=== PATIENT | female | born 1985 | race African-American/Black ===

== ENCOUNTER 2016-10-06 17:17 | Emergency (ER) | payer OTHER ==
[~2016-10-06] VITALS: Ht 162.6 cm; Wt 89.4 kg
[~2016-10-06 17:17] MED LIST: ACETAMINOPHEN-1 EAC2 PO; FLEXERIL10 MG PO; IBUPROFEN800 M1 PO; JUNEL FE 1/20 21 TAB PO; LIORESAL 10MG T10 MG PO; MACROBID100 MG PO; MOTRIN 600 MG600 MG PO; PANTOPRAZOLE SO40 M1 PO; PERCOCET 325 MG1 TA2 PO; PROAIR HFA8.5 GM INH; TRAMADOL HCL50 M1 PO; VICODIN5-300 PO; ZOFRAN ODT4 MG PO; ZOFRAN ODT4 MG SL
[2016-10-06 17:21] VITALS: BP 130/87
[2016-10-06] MEDS ORDERED: MEDROL4 M2 PO (18:34)
[2016-10-06] MEDS ORDERED: CYCLOBENZAPRINE10 M1 PO (18:34)
[2016-10-06] MEDS ORDERED: PERCOCET 5-3251 EACH PO (18:34)
--- NOTE | 2016-10-06 18:35 | ED NECK/BACK PAIN COMPLAINT ---
History of Present Illness General Chief Complaint: Lower Extremity Injury Stated Complaint: PT SHARP PAIN IN THE LOWER BACK Source: patient Exam Limitations: no limitations Vital Signs & Intake/Output Vital Signs & Intake/Output Vital Signs Date Time Temp Pulse Resp B/P Pulse O2 O2 Flow FiO2 Ox Delivery Rate 10/06 1721 96.0 103 16 130/87 99 Room Air Allergies Coded Allergies: No Known Allergies (10/06/16) Reconcile Medications Acetaminophen With Codeine (Acetaminophen-Cod #4 Tablet) 1 EACH TABLET 1 TAB PO TID PRN PAIN (Reported) Albuterol Sulfate (Proair Hfa) 8.5 GM HFA.AER.AD 2 PUF INH Q4-6 PRN PRN BREATHING PROBLEMS (Reported) Cyclobenzaprine HCl 10 MG TABLET 1 TAB PO TID SPASMS Ibuprofen 800 MG TABLET 1 TAB PO TID PRN PAIN (Reported) Methylprednisolone. (Medrol) 4 MG TAB.DS.PK 1 DP PO AD BACK PAIN 6 on day 1 then reduce by one tablet daily until gone Oxycodone HCl/Acetaminophen (Percocet 5-325 MG Tablet) 5 MG-325 MG TABLET 1-2 TAB PO Q6P PRN pain Pantoprazole Sodium 40 MG TABLET.DR 1 TAB PO DAILY GI (Reported) Tramadol HCl 50 MG TABLET 1 TAB PO BIDP PRN PAIN (Reported) Triage Note: PT STATES SHE IS HAVING SHARP PAIN IN HER BACK THAT HAS BEEN GOING ON FOR MONTHS BUT GETTING WORSE. PT STATES SHE HAS HAD X-RAYS AND NOBODY CAN FIND OUT WHY. PT STATES SHE IS ONLY ABLE TO STAND FOR 5 MINUTES AT A TIME. Triage Nurses Notes Reviewed? yes Onset: Abrupt Duration: week(s):, getting worse Quality/Severity: moderate, severe Location: lumbar spine Loss of Consciousness: no loss of consciousness : No Patient currently breastfeeds: No HPI: 31-year-old female comes into emergency room for further evaluation of lower back pain. Patient reports that she's been experiencing chronic low back pain since 2014. Patient reports that the pain has been worse over the past few weeks. She denies any vomiting. She denies any abdominal pain. Denies any chance of . Pain shoots down her left leg. Nothing seems to make the symptoms better. Patient has been taking [id number] medications with no relief. Denies any other associated symptoms. (KAE GARCIA) Past History Travel History Traveled to [place] past 21 day No Medical History Any Pertinent Medical History? 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 No (KAE GARCIA) Review of Systems Review of Systems Constitutional: Reports: no symptoms. Eyes: Reports: no symptoms. Ears, Nose, Throat, Mouth: Reports: no symptoms. Respiratory: Reports: no symptoms. Cardiovascular: Reports: no symptoms. Gastrointestinal/Abdominal: Reports: no symptoms. Musculoskeletal: Reports: see HPI. Skin: Reports: no symptoms. Neurological/Psychological: Reports: no symptoms. All Other Systems: Reviewed and Negative (KAE GARCIA) Physical Exam Physical Exam General Appearance: well developed/nourished, mild distress Head: atraumatic Eyes: Bilateral: normal appearance. Ears, Nose, Throat, Mouth: hearing grossly normal, moist mucous membrane Neck: normal inspection, full range of motion Respiratory: normal breath sounds, no respiratory distress Back: normal inspection Extremities: normal range of motion Motor: Deficit L4 Right: No Deficit L4 Left: No Deficit L5 Right: No Deficit L5 Left: No Deficit S1 Right: No Deficit S1 Right: No Neurologic/Psych: awake, alert, oriented x 3, normal mood/affect Skin: intact, normal color, warm/dry (KAE GARCIA) Progress Differential Diagnosis: cauda equina syn, herniated disc, myofascial strain, pyelo/UTI, sciatica, spinal cord inj, thoracic outlet syn, T/L spine injury, ureterolithiasis Plan of Care: Current Medications Sig/Vanessa Start time Last Medication Dose Stop Time Status Admin Oxycodone/ 2 TAB ONCE ONE 10/06 1844 UNVr Acetaminophen 10/06 1845 (Percocet) Comments: 10/06/2016 6:51:13 PM Patient's pain is all reproducible and lower back. Pain is worse with range of motion. No evidence of radiculopathy on exam. No urinary bowel dysfunction. No genital numbness. No weakness in the lower extremity. Normal dorsiflexion of great toe. Gross sensation intact. No saddle paresthesia. Considered things like cauda equina have a do not feel that patient's symptoms at this point in time are consistent with this diagnosis. Patient has no other symptoms that could be attributing to back pain. No abdominal pain, shortness of breath, chest pain. Patient is to follow-up with primary care doctor for recheck. If symptoms persist patient should be considered for an MRI of the lower back. Patient is to return immediately if any nausea vomiting, fever, weakness in the legs, urinary bowel dysfunction, abdominal pain, chest pain, shortness of breath. No weight loss. No night sweats. Pain is consistent with musculoskeletal pain due to the patient's symptoms mentioned above. (OTTO TANNER,KAE) Departure Departure Disposition: HOME OR SELF CARE Condition: Stable Clinical Impression Primary Impression: Acute exacerbation of chronic low back pain Referrals: UNKNOWN (PCP/Family) Additional Instructions: Take Percocet, Flexeril, and Medrol Dosepak as prescribed. Follow-up with your primary care doctor. Return if any urinary bowel dysfunction. Return if any other concerns worsening symptoms. Please go over all results of today's visit with your primary care doctor. Contact your primary care doctor to let them know you were here in the emergency room. There may be nonspecific findings which may not be related to your visit today here in the emergency room but may require further evaluation and chronic monitoring by your primary care doctor. If you had a laceration today the chance of foreign body always remains. You should follow-up with your primary care doctor for recheck in 3-5 days for a wound check. If you had an x-ray done there is a chance that a fracture could have been missed on initial read and you should follow-up with your primary care doctor for repeat x-rays if symptoms persist. If your blood pressure was elevated here in the emergency room please have rechecked by her primary care doctor within the next 48 hours by your primary care doctor. If you were prescribed a narcotic here in the emergency room or any type of controlled substances you're not allowed to drive while taking this medication or operate any type of heavy machinery. Narcotics can make you feel lightheaded dizziness nausea and can cause constipation. You may need to mixing picker tender a stool softener. Thank you for choosing [facility] emergency room. Please return to the emergency room immediately if you have any other concerns worsening of symptoms. Departure Forms: Customer Survey General Discharge Information Prescriptions: Current Visit Scripts Oxycodone HCl/Acetaminophen (Percocet 5-325 MG Tablet) 1-2 TAB PO Q6P PRN pain #15 TAB Cyclobenzaprine HCl 1 TAB PO TID #20 TAB Methylprednisolone. (Medrol) 1 DP PO AD #1 DP 6 on day 1 then reduce by one tablet daily until gone (KAE GARCIA) PA/CAR REPOSSESSOR Co-Sign Statement Statement: ED Attending supervision documentation- [] I saw and evaluated the patient. I have also reviewed all the pertinent lab results and diagnostic results. I agree with the findings and the plan of care as documented in the PA's/CAR REPOSSESSOR's documentation. [X] I have reviewed the ED Record and agree with the PA's/CAR REPOSSESSOR's documentation. [] Additions or exceptions (if any) to the PAs/CAR REPOSSESSOR's note and plan are summarized below: [] (NATTY BONILLA DO
== END 2016-10-06 18:43 ==
LOC: ERH 17:17
DX: G89.29 Other chronic pain (principal); M54.5 Low back pain

== ENCOUNTER 2016-10-08 12:35 | Emergency (ER) | payer OTHER ==
[~2016-10-08] VITALS: Ht 162.6 cm; Wt 89.4 kg
[~2016-10-08 12:35] MED LIST changes: +CYCLOBENZAPRINE10 M1 PO; +MEDROL4 M2 PO; +PERCOCET 5-3251 EACH PO
[2016-10-08 12:40] VITALS: BP 119/80
--- NOTE | 2016-10-08 13:24 | ED NECK/BACK PAIN COMPLAINT ---
History of Present Illness General Chief Complaint: Low Back Pain/Injury Stated Complaint: LEG AND LOWER BACK PAIN Source: patient, old records Exam Limitations: no limitations Vital Signs & Intake/Output Vital Signs & Intake/Output Vital Signs Date Time Temp Pulse Resp B/P Pulse O2 O2 Flow FiO2 Ox Delivery Rate 10/08 1240 97.6 104 18 119/80 98 Room Air Allergies Coded Allergies: No Known Allergies (10/06/16) Reconcile Medications Acetaminophen With Codeine (Acetaminophen-Cod #4 Tablet) 1 EACH TABLET 1 TAB PO TID PRN PAIN (Reported) Albuterol Sulfate (Proair Hfa) 8.5 GM HFA.AER.AD 2 PUF INH Q4-6 PRN PRN BREATHING PROBLEMS (Reported) Cyclobenzaprine HCl 10 MG TABLET 1 TAB PO TID SPASMS Hydromorphone HCl (Dilaudid) 2 MG TABLET 1 TAB PO BIDP PRN pain Ibuprofen 800 MG TABLET 1 TAB PO TID PRN PAIN (Reported) Methylprednisolone. (Medrol) 4 MG TAB.DS.PK 1 DP PO AD BACK PAIN 6 on day 1 then reduce by one tablet daily until gone Oxycodone HCl/Acetaminophen (Percocet 5-325 MG Tablet) 5 MG-325 MG TABLET 1-2 TAB PO Q6P PRN pain Pantoprazole Sodium 40 MG TABLET.DR 1 TAB PO DAILY GI (Reported) Tramadol HCl 50 MG TABLET 1 TAB PO BIDP PRN PAIN (Reported) Triage Note: C/O LOWER BACK BACK PAIN X MONTHS. SEEN HERE 2 DAYS AGO FOR SAME, STATES PAIN IS WORSE, RADIATING TO BOTH LEGS. PAIN MEDS AND MUSCLE RELAXERS NOT HELPING. Triage Nurses Notes Reviewed? yes Onset: Gradual Duration: intermittent, waxing and waning, since 2014 worse x 2 weeks Timing: recent history Quality/Severity: moderate, severe, aching Location: paraspinous muscles Radiation: buttocks, upper legs, lower legs Method of Injury: unknown Loss of Consciousness: no loss of consciousness Modifying Factors: movement, pain medication, rest : No Patient currently breastfeeds: No HPI: 31-year-old female history of hypertension diabetes presents complaining of exacerbation of her chronic left lower back pain that she's had since 2014. She states this episode is been present for the past 2 weeks. Patient was seen in this ER earlier this week was prescribed Medrol Dosepak Flexeril Percocet which she states she's been taking without improvement. The pain is radiating into her eyes abdominal pain nausea vomiting no urinary or bowel incontinence. She describes the pain as a tingling sensation into her leg. She states she has seen her primary care physician in the past for these symptoms had x-rays with no known cause identified. Pain is worse with change in position there is been no recent fall trauma or other injury patient denies chance of there are no other associated symptoms pain is aching mild to moderate severe aching better with rest (COREY MOE) Past History Travel History Traveled to [place] past 21 day No Medical History Any Pertinent Medical History? 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 No (COREY MOE) Review of Systems Review of Systems Constitutional: Reports: see HPI. All Other Systems: Reviewed and Negative Comments Review of systems: See HPI, All other systems negative. Constitutional, no chills no fever, no malaise HEENT: no sore throat no congestion, no ear pain Cardiovascular: No chest pain , no palpitation Skin, no rashes, no change in skin Respiratory: No dyspnea no cough no sputum no hemoptysis GI: No nausea no vomiting, no diarrhea, no bloating/constipation : No dysuria No hematuria, no frequency, no discharge Muscle skeletal: No joint pain, no joint swelling, back pain, no neck pain, Neurologic: No numbness no confusion, no headache Psych: No stress Heme/endocrine: No bruising no bleeding Immunology: No lymphadenopathy (COREY MOE) Physical Exam Physical Exam General Appearance: well developed/nourished, alert, awake Neck: normal inspection, supple, full range of motion Comments: Well-developed well-nourished person in no acute distress HEENT: Normal EENT exam; PERRL, EOMI,HEAD is atraumatic. moist mucous membranes. Neck: Supple, normal range of motion Back: Left sided paralumbar muscle tenderness palpation no ecchymosis, no CVA tenderness. Full range of motion Cardiovascular: Regular rate and rhythms no murmurs rubs Respiratory: No respiratory distress. Patient speaking in full complete sentences. Breath sounds clear to auscultation bilaterally: NO W/R/R Abdomen: Soft, nontender nondistended, no appreciable organomegaly. Normal bowel sounds. No rebound/guarding, No appreciable enlargement of the abdominal aorta, No ascites. upper Extremity: No edema, full range of motion of extremities 5 out of 5 strength noted to bilateral upper and lower extremities Hip/Pelvis: Atraumatic/Stable. FROM. No pain with pelvic compression Knee: Atraumatic/stable. FROM. No joint swelling, no effusion. No laxity. No pain with ROM Leg: Atraumatic. Nontender. No edema, 5 out of 5 strength in the lower extremity, normal dorsiflexion of great toe bilaterally, gross sensation is intact Ankle/Foot: Atraumatic/stable. Skin intact. FROM. No swelling, no effusion. No laxity on exam Pulses: Normal/equal DP/PT pulses bilaterally. Brisk cap refill Neuro: Alert oriented x3, motor sensory normal, There were no obvious focal neurologic abnormalities. Skin: No appreciable rash on exposed skin, skin is warm and dry. Psych: Mood and affect is normal, memory and judgment is normal. (JOSEP TANNER,COREY) Progress Differential Diagnosis: cauda equina syn, herniated disc, myofascial strain, pyelo/UTI, sciatica, spinal cord inj, T/L spine injury, ureterolithiasis, Plan of Care: Current Medications Sig/Vanessa Start time Last Medication Dose Stop Time Status Admin Ketorolac 30 MG ONCE ONE 10/08 1345 UNVr Tromethamine 10/08 1346 (Toradol) Patient clinically looks well. Patient has no evidence of radiculopathy. No urinary bowel dysfunction. No numbness in the genital area. Strength intact. Gross sensation intact. Patient resting comfortably and in no apparent distress. Pain is worse with range of motion. Pain is reproducible IN back with no bruising or ecchymosis noted. . Patient is to follow-up with primary care doctor. May need MRI of the lower back at some point time. No concerns for cauda equina at this point time. I considered this diagnosis but patient does not have any symptoms consistent with cauda equina. Patient has no secondary causes of back pain. No cardiac, pulmonary, or abdominal complaints. No abdominal pain on exam. Cardiac pulmonary exam within normal limits. No rashes, afebrile, denies recent weight loss, dizziness, lightheadedness (COREY MOE) Departure Departure Time of Disposition: 1330 Disposition: HOME OR SELF CARE Condition: Stable Clinical Impression Primary Impression: Lumbar radiculopathy Referrals: DANIA ADEN,DANIA (PCP/Family) Additional Instructions: Follow-up with your primary care physician on Monday for referral as you may require an MRI of her lumbar spine. Follow-up with Dr. kang neurosurgery. dilaudid for breakthrough pain-use caution as this is a narcotic highly addictive no driving or drinking alcohol while taking as this will make you drowsy. This was sent to your pharmacy. Continue taking the medrol dose levi and muscle relaxer you have. Departure Forms: Customer Survey General Discharge Information Prescriptions: Current Visit Scripts Hydromorphone HCl (Dilaudid) 1 TAB PO BIDP PRN pain #10 TAB (COREY MOE) PA/CARTON MARKER MACHINE Co-Sign Statement Statement: ED Attending supervision documentation- [] I saw and evaluated the patient. I have also reviewed all the pertinent lab results and diagnostic results. I agree with the findings and the plan of care as documented in the PA's/CARTON MARKER MACHINE's documentation. [X] I have reviewed the ED Record and agree with the PA's/CARTON MARKER MACHINE's documentation. [] Additions or exceptions (if any) to the PAs/CARTON MARKER MACHINE's note and plan are summarized below: [] (JONATHON ADEN,RITO Will)
[2016-10-08] MEDS ORDERED: DILAUDID2 M1 PO (13:32)
== END 2016-10-08 13:47 ==
LOC: ERH 12:35
DX: M54.16 Radiculopathy, lumbar region (principal)
CPT/HCPCS: 96372; J1885

== ENCOUNTER 2016-10-17 04:34 | Emergency (ER) | payer OTHER ==
[~2016-10-17] VITALS: Ht 162.6 cm; Wt 90.7 kg
[~2016-10-17 04:34] MED LIST changes: +DILAUDID2 M1 PO
--- NOTE | 2016-10-17 05:10 | ED CARDIAC/CP/PALPITATIONS ---
History of Present Illness General Chief Complaint: Chest Pain Stated Complaint: "IM HAVING PAIN IN MY CHEST" Source: patient Exam Limitations: no limitations Vital Signs & Intake/Output Vital Signs & Intake/Output Vital Signs Date Time Temp Pulse Resp B/P Pulse O2 O2 Flow FiO2 Ox Delivery Rate 10/17 0454 96.8 121 18 130/84 97 Room Air Allergies Coded Allergies: No Known Allergies (10/06/16) Reconcile Medications Acetaminophen With Codeine (Acetaminophen-Cod #4 Tablet) 1 EACH TABLET 1 TAB PO TID PRN PAIN (Reported) Albuterol Sulfate (Proair Hfa) 8.5 GM HFA.AER.AD 2 PUF INH Q4-6 PRN PRN BREATHING PROBLEMS (Reported) Amoxicillin/Potassium Clav (Augmentin 875-125 Tablet) 875 MG-125 MG TABLET 1 TAB PO BID bronchitis Benzonatate (Tessalon Perle) 100 MG CAPSULE 1 CAP PO TID cough Cyclobenzaprine HCl 10 MG TABLET 1 TAB PO TID SPASMS Hydromorphone HCl (Dilaudid) 2 MG TABLET 1 TAB PO BIDP PRN pain Ibuprofen 800 MG TABLET 1 TAB PO TID PRN PAIN (Reported) Ibuprofen 800 MG TABLET 1 TAB PO TID PRN pain Methylprednisolone. (Medrol) 4 MG TAB.DS.PK 1 DP PO AD BACK PAIN 6 on day 1 then reduce by one tablet daily until gone Oxycodone HCl/Acetaminophen (Percocet 5-325 MG Tablet) 5 MG-325 MG TABLET 1-2 TAB PO Q6P PRN pain Pantoprazole Sodium 40 MG TABLET.DR 1 TAB PO DAILY GI (Reported) Tramadol HCl 50 MG TABLET 1 TAB PO BIDP PRN PAIN (Reported) Triage Note: PT FROM HOME C/O CP. PT STATES AROUND 0400 PT WAS AWOKEN OUT OF SOUND SLEEP BY CP, PT STATES SOB, BILATERAL LOWER AND UPPER EXTREMITY TINGLING AND NUMBNESS. PT STATES BACK PAIN THAT DOES NOT RADIATE ANYWHERE. PT STATES "EVERYTHING ON MY BOSY IS JUST TINGLY". AWAITING PROVIDER EVAL, EKG COMPLETED Triage Nurses Notes Reviewed? yes Onset: Abrupt Duration: hour(s): Timing: single episode today Location: right lateral chest wall Radiation: no radiation Activities at Onset: "i've been coughing a lot yesterday" Prior Chest Pain/Card Workup: no prior chest pain Modifying Factors: Worsens With: palpation. : No Patient currently breastfeeds: No HPI: 31 yo woman in prior good health presents with right sided rib cage pain to palpation x 1 hour. She notes that yesterday she had been coughing a lot, productive of sputum, without wheeze, shortness of breath, or fever. She awoke with right sided rib cage pain,non radiating, worse with palpation. She is otherwise well. Past History Travel History Traveled to [place] past 21 day No Medical History Any Pertinent Medical History? 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 No Review of Systems Review of Systems Constitutional: Reports: no symptoms. EENTM: Reports: no symptoms. Respiratory: Reports: no symptoms. Cardiovascular: Reports: no symptoms. GI: Reports: no symptoms. Genitourinary: Reports: no symptoms. Musculoskeletal: Reports: no symptoms. Skin: Reports: no symptoms. Neurological/Psychological: Reports: no symptoms. Hematologic/Endocrine: Reports: no symptoms. Immunologic/Allergic: Reports: no symptoms. All Other Systems: Reviewed and Negative Physical Exam Physical Exam General Appearance: well developed/nourished, no apparent distress Head: atraumatic, normal appearance Eyes: Bilateral: normal appearance. Ears, Nose, Throat: normal pharynx, normal ENT inspection Neck: normal inspection, supple, full range of motion Respiratory: normal breath sounds, right sided rib cage tenderness to palpation and right parasternal tenderness to palpation. Cardiovascular: regular rate/rhythm Gastrointestinal: normal bowel sounds, soft, non-tender Back: normal inspection, normal range of motion Extremities: normal inspection, normal capillary refill, normal range of motion, no edema Neurologic/Psych: no motor/sensory deficits, awake, alert, oriented x 3 Skin: intact, normal color, warm/dry Core Measures ACS in differential dx? No Severe Sepsis Present: No Septic Shock Present: No Progress Differential Diagnosis: costochondritis vs bronchitis... i doubt cardiac issues given her exam. Plan of Care: Orders Procedure Date/time Status EKG 10/17 0436 Active Initial ED EKG: normal axis, normal intervals, normal p-waves, normal QRS complex, normal sinus rhythm Departure Departure Disposition: HOME OR SELF CARE Condition: Stable Clinical Impression Primary Impression: Bronchitis Secondary Impressions: Costochondritis Referrals: DANIA NAJERA MD (PCP/Family) Departure Forms: Customer Survey General Discharge Information Prescriptions: Current Visit Scripts Ibuprofen 1 TAB PO TID PRN pain #30 TAB Amoxicillin/Potassium Clav (Augmentin 875-125 Tablet) 1 TAB PO BID #20 TAB Benzonatate (Tessalon Perle) 1 CAP PO TID #30 CAP Critical Care Note Critical Care Note Critical Care Time: non-applicable
[2016-10-17] MEDS ORDERED: TESSALON PERLE100 M1 PO (05:35)
[2016-10-17] MEDS ORDERED: AUGMENTIN 875-1 EACH PO (05:35)
[2016-10-17] MEDS ORDERED: IBUPROFEN800 M1 PO (05:35)
[2016-10-17 05:50] VITALS: BP 136/62
== END 2016-10-17 05:52 ==
LOC: ERH 04:34
DX: J40 Bronchitis, not specified as acute or chronic (principal); M94.0 Chondrocostal junction syndrome [Tietze]; Z72.0 Tobacco use
CPT/HCPCS: 93005; 93010

== ENCOUNTER 2018-03-25 14:05 | Emergency (ER) | payer OTHER ==
[~2018-03-25] VITALS: Ht 165.1 cm; Wt 87.1 kg
[~2018-03-25 14:05] MED LIST changes: +ALL DAY ALLERGY10 MG PO; +AUGMENTIN 875-1 EACH PO; +CITALOPRAM HBR40 MG PO; +CYCLOBENZAPRINE5 M2 PO; +DICYCLOMINE HCL10 M1 PO; +ESCITALOPRAM OX10 MG PO; +FLUTICASONE PRO16 GM NASB; +KETOROLAC TROME10 M1 PO; +LEVSIN0.125 M1 PO; +MONTELUKAST SOD10 M1 PO; +NORCO 5-325 TA1 EACH PO; +OMEPRAZOLE20 M2 PO; +TESSALON PERLE100 M1 PO; +VIGAMOX3 ML OPH; +ZESTRIL10 M1 PO; +ZOFRAN ODT4 M1 SL; +ZOFRAN4 M2 PO
--- NOTE | 2018-03-25 14:46 | ED GENERAL ADULT ---
History of Present Illness General Chief Complaint: General Adult Stated Complaint: LEFT SIDED NECK/BACK/SHOULDER PAIN, AND NUMBNESS Source: patient Exam Limitations: no limitations Allergies Coded Allergies: No Known Allergies (03/25/18) Triage Note: PT SENT TO ED FROM [facility] FOR ADDITIONAL TESTS FOR C/C OF L NECK, BACK, SHOULDER, ARM AND LEG PAIN. SYMPTOMS STARTED MONDAY BUT GOT WORSE TODAY WITH NUMBNESS/TINGLING. LIMITED ROM. +HEADACHE. HAD XRAYS DONE AT [facility]. PT HAS PAPERWORK. Triage Nurses Notes Reviewed? yes : No Patient currently breastfeeds: No HPI: 32-year-old woman with past medical history of hypertension, asthma, GERD, recurrent UTIs, depression, and Graves' disease seen for evaluation of multiple musculoskeletal complaints. She was previously seen in the [facility] on 01/19/18 for evaluation of nausea, vomiting, and diarrhea with flulike symptoms and decreased intake of food and water. Patient was afebrile with labs including CBC, serum chemistry, and urinalysis demonstrating no acute findings. CT abdomen/pelvis with IV contrast demonstrated no acute intra-abdominal pathology. She was discharged home with Zofran, dicyclomine, and ketorolac for her gastroenteritis with instruction to follow-up with her PCP as an outpatient. Patient reports that she developed left-sided neck/shoulder pain, back pain, and leg pain that developed yesterday morning when she woke up. She denies any trauma to these areas or any recent significant increase in physical activity. Her symptoms progressively worsened during the day with development of numbness and tingling in her hands and feet on that side. She otherwise denies any fever , chills, chest pain, shortness breath, abdominal pain. (Jose ADEN,Morales) Vital Signs & Intake/Output Vital Signs & Intake/Output Vital Signs Date Time Temp Pulse Resp B/P B/P Pulse O2 O2 Flow FiO2 Mean Ox Delivery Rate 03/25 1849 98.6 70 20 126/91 98 Room Air 03/25 1550 98.9 87 20 165/80 98 Room Air 03/25 1450 Room Air 03/25 1411 97.4 86 15 150/98 99 Room Air Room Air Reconcile Medications Albuterol Sulfate (Proair Hfa) 8.5 GM HFA.AER.AD 2 PUF INH Q4-6 PRN PRN BREATHING PROBLEMS (Reported) Cetirizine HCl (All Day Allergy) 10 MG TABLET 1 TAB PO DAILY ALLERGIES ( Reported) Cyclobenzaprine HCl 5 MG TABLET 1 TAB PO TIDPRN MUSCLE SPASM Dicyclomine HCl 10 MG CAPSULE 1 CAP PO TID PRN GASTROENTERITIS Escitalopram Oxalate 10 MG TABLET 1 TAB PO DAILY MENTAL HEALTH (Reported) Fluticasone Propionate 50 MCG/ACTUATION SPRAY.SUSP 2 SPRAY NASB DAILY ALLERGIES (Reported) Ibuprofen 800 MG TABLET 1 TAB PO TID PRN MUSCLE SPASM / PAIN Ketorolac Tromethamine 10 MG TABLET 1 TAB PO TID PRN PAIN RECEIVED IV IN ER. Lisinopril (Zestril) 10 MG TABLET 1 TAB PO DAILY HEART (Reported) Methylprednisolone. (Medrol) 4 MG TAB.DS.PK 1 DP PO AD INFLAMMATION 6 on day 1 then reduce by one tablet daily until gone Montelukast Sodium 10 MG TABLET 1 TAB PO DAILY ALLERGIES (Reported) Omeprazole 20 MG CAPSULE.DR 1 CAP PO DAILY GI (Reported) Ondansetron HCl (Zofran) 4 MG TABLET 1 TAB PO Q6-8P PRN NAUSEA (Jose Wade MD) Past History Travel History Traveled to [place] past 21 day No Medical History Any Pertinent Medical History? 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 No (Morales Garcia MD) Review of Systems Review of Systems Constitutional: Reports: see HPI. (Morales Garcia MD) Physical Exam Physical Exam General Appearance: well developed/nourished, no apparent distress, alert, awake , comfortable Comments: General - well developed, well nourished young woman appearing uncomfortable but in no acute distress HEENT - NCAT, PERRL, EOMI, anicteric sclera Neck- Supple, no JVD/HJR, no bruits, trachea midline, thyroid normal Cardio - S1, S2 w/o murmurs/gallops/rubs; regular rate and rhythm Resp - Clear to auscultation bilaterally GI - Soft, nontender, nondistended, bowel sounds present Neuro - Awake and alert, CN II - XII grossly intact, strength 5/54, speech fluent, face symmetric, speech/sensation/coordination intact Extremities - No edema, pulses intact Core Measures ACS in differential dx? No CVA/TIA Diagnosis: No Sepsis Present: No Sepsis Focused Exam Completed? No (Morales Garcia MD) Progress Differential Diagnoses I considered the following diagnoses in my evaluation of the patient: Radiculopathy, muscle sprain, muscle strain, disc herniation, pseudotumor cerebri, meningitis Initial ED EKG: none Comments: Patient is seen for evaluation of multiple musculoskeletal complaints without inciting injury. Vital signs remain within normal limits. Physical examination demonstrates young woman appearing uncomfortable but no acute distress with muscle spasms in her neck with preserved strength and neurologic function diffusely initially with poor effort. Labs including CBC and serum chemistry are unremarkable. Urinalysis and urine test are unremarkable/ negative. CT head/soft tissues of neck demonstrate no acute findings. Patient was medicated with oral ibuprofen and intravenous Toradol resulting in moderate improvement of her symptoms. Clinically patient appears to have muscular strain /sprain of her neck muscles. Patient is discharged home with steroids, ibuprofen, and should her symptoms muscle relaxers. She is encouraged to follow -up with her primary care provider and to return to the emergency department should her symptoms return/worsen. (Morales Garcia MD) Plan of Care: Orders Procedure Date/time Status URINE 03/25 1506 Complete URINALYSIS 03/25 1506 Complete LACTIC ACID 03/25 1506 Complete COMPREHENSIVE METABOLIC PANEL 03/25 1506 Complete CBC WITHOUT DIFFERENTIAL 03/25 1506 Complete Laboratory Tests 03/25/18 1806: Lactic Acid Cancelled 03/25/18 1525: Urinalysis MOD H, Urine Color YEL, Urine Clarity HAZY H, Urine pH 6.0, Ur Specific [place] >= 1.030, Urine Protein NEG, Urine Ketones NEG, Urine Nitrite NEG, Urine Bilirubin NEG, Urine Urobilinogen 0.2, Ur Leukocyte Esterase NEG, Ur Microscopic SEDIMENT EXAMINED, Urine RBC RARE, Urine WBC RARE, Ur Epithelial Cells MOD H, Urine Bacteria FEW H, Urine Mucus FEW, Urine Hemoglobin TRACE- INTACT, Urine Glucose NEG, Urine Test NEGATIVE 03/25/18 1515: Anion Gap 9, Estimated GFR > 60, BUN/Creatinine Ratio 11.3, Glucose 80, Lactic Acid 1.7, Calcium 8.9, Total Bilirubin 0.1 L, AST 21, ALT 28, Alkaline Phosphatase 44, Total Protein 6.8, Albumin 3.9, Globulin 2.9, Albumin/Globulin Ratio 1.3, CBC w Diff NO MAN DIFF REQ, RBC 4.10 L, MCV 89.6, MCH 29.9, MCHC 33.4, RDW 13.6, MPV 8.5, Gran % 50.0, Lymphocytes % 37.7, Monocytes % 8.7, Eosinophils % 2.9, Basophils % 0.7, Absolute Granulocytes 3.9, Absolute Lymphocytes 3.0, Absolute Monocytes 0.7 H, Absolute Eosinophils 0.2, Absolute Basophils 0.1 (Jose Wade MD) Departure Departure Disposition: HOME OR SELF CARE Condition: Stable Clinical Impression Primary Impression: Muscle spasms of neck Referrals: Suzette Barrett MD (PCP/Family) Additional Instructions: Take ibuprofen, cyclobenzaprine, and the Medrol Dosepak as directed. Stay hydrated while taking these medications. Avoid drinking alcohol while taking these medications. Avoid driving or operating heavy machinery while taking cyclobenzaprine until you know how it affects you. If you develop signs of infection such as fever or sensitivity to light or new neurologic symptoms please contact 911 or return to the emergency department. Follow-up with your primary care provider. Departure Forms: Customer Survey General Discharge Information Prescriptions: Current Visit Scripts Ibuprofen 1 TAB PO TID PRN MUSCLE SPASM / PAIN #90 TAB Methylprednisolone. (Medrol) 1 DP PO AD #1 DP 6 on day 1 then reduce by one tablet daily until gone Cyclobenzaprine HCl 1 TAB PO TIDPRN #30 TAB (Morales Garcia MD) Resident Co-Sign Statement Statement: ED Attending supervision documentation- I saw and evaluated the patient. I have also reviewed all the pertinent lab results and diagnostic results. I agree with the findings and the plan of care as documented in the Resident's documentation. x I have reviewed the ED Record and agree with the Resident's documentation. [] Additions or exceptions (if any) to the Resident's note and plan are summarized below: [] (Jose Wade MD) Critical Care Note Critical Care Note Critical Care Time: 30-74 min (Jose ADEN,Morales)
[2018-03-25 15:42] LABS: ABSOLUTE BASOPHIL COUNT 0.1 /CUMM (0.0-0.2); ABSOLUTE EOSINOPHIL COUNT 0.2 /CUMM (0.0-0.7); ABSOLUTE GRANULOCYTE CT 3.9 /CUMM (1.4-6.5); ABSOLUTE MONOCYTE COUNT 0.7 /CUMM (0.10-0.60); BASOPHIL % 0.7 % (0.0-2.0); EOSINOPHIL % 2.9 % (0-5); HEMATOCRIT 36.7 % (37-47); MEAN CORPUSCULAR HGB 29.9 PG (27.0-31.0); MEAN CORPUSCULAR HGB CONC 33.4 G/DL (33.0-37.0); MEAN CORPUSCULAR VOLUME 89.6 FL (81.0-99.0); MEAN PLATELET VOLUME 8.5 FL (7.4-10.4); PLATELET COUNT 321 /CUMM (130-400); RBC DISTRIBUTION WIDTH 13.6 % (11.5-14.5); WHITE BLOOD CELL COUNT 7.8 /CUMM (4.8-10.8)
--- NOTE | 2018-03-25 16:34 | CT SCAN REPORT ---
EXAMINATION: CT HEAD WITHOUT CONTRAST CLINICAL INFORMATION: A stiff recheck neck COMPARISON: None TECHNIQUE: Contiguous axial imaging was performed from the skull base to vertex without intravenous administration of contrast. DLP: 08.17 mGy-cm FINDINGS: There is no evidence of acute intracranial hemorrhage or territorial infarction. No abnormal mass effect or midline shift is seen. Carpio to white matter differentiation is well preserved. No extra-axial fluid collections are identified. The ventricles are normal in size. The osseous structures and soft tissues are normal. The mastoid air cells and visualized portions of the paranasal sinuses are well aerated. IMPRESSION: No acute intracranial pathology.
--- NOTE | 2018-03-25 16:49 | CT SCAN REPORT ---
EXAMINATION: CT NECK WITHOUT CONTRAST CLINICAL INFORMATION: Neck stiffness for 2 days. Assess for soft tissue injury/swelling. COMPARISON: None TECHNIQUE: CT of the neck was performed without contrast. Multiplanar reformats were rendered and reviewed. DLP: 419 mGy-cm FINDINGS: The adenoids are prominent and efface the nasopharyngeal airway in the supine position. The palatine tonsils are also prominent and meet in the midline. No gross palatine tonsillar collection is seen. The pharyngeal and laryngeal contours appear normal. The parotid and submandibular glands demonstrate normal attenuation and are symmetric. The thyroid gland is mildly prominent but within normal limits. No suspicious lymphadenopathy is seen. Reactive appearing lymph nodes are seen in the bilateral neck and in the bilateral suboccipital regions. The upper lungs are clear. No superior mediastinal abnormality is seen. The cervical spine appears normal. The visualized portions of the intracranial and orbital contents are within normal limits. IMPRESSION: - Within the limits of noncontrast technique no neck mass or suspicious lymphadenopathy is seen. Reactive appearing nonenlarged lymph nodes are noted. - Prominent adenoids and palatine tonsils.
[2018-03-25] MEDS ORDERED: MEDROL4 M2 PO (17:54)
[2018-03-25] MEDS ORDERED: CYCLOBENZAPRINE5 M2 PO (17:54)
[2018-03-25] MEDS ORDERED: IBUPROFEN800 M1 PO (17:54)
[2018-03-25 18:49] VITALS: BP 126/91
== END 2018-03-25 18:50 ==
LOC: ERH 14:05
PROVIDERS: Internal Medicine Interventional Cardiology
DX: M62.838 Other muscle spasm (principal); I10 Essential (primary) hypertension; J45.909 Unspecified asthma, uncomplicated; K21.9 Gastro-esophageal reflux disease without esophagitis; F32.9 Major depressive disorder, single episode, unspecified; E05.00 Thyrotoxicosis with diffuse goiter without thyrotoxic crisis or storm; F17.210 Nicotine dependence, cigarettes, uncomplicated
CPT/HCPCS: 81001; 81025; 96374; J1885